=== PATIENT | female | born 2000 | race African-American/Black ===

== ENCOUNTER 2024-12-25 00:02 | Emergency (ER) | payer MEDICAID, SELFPAY ==
[2024-12-25 00:22] VITALS: BP 129/73; PULSE 89; RESP 20; TEMP 36.7; O2SAT 99; BMI 36.0
--- NOTE | 2024-12-25 00:54 | ED.GENADULT ---
HPI - General Adult General Chief complaint: Laceration/Wound Stated complaint: vagina lac from shaving Time Seen by Provider: 12/25/24 00:43 Source: patient and family Mode of arrival: ambulatory Limitations: no limitations History of Present Illness HPI narrative: 24-year-old female presents to the emergency department after a genital shaving accident. She was shaving her outer labia when she went a little bit too close to the labia minora, cutting the inside edge of the labia majora. She reports ?lots of bleeding?. She did not try any home measures like applying pressure or keeping her legs closed for an hour or other measures to help with symptoms. Did not try taking Tylenol or ibuprofen for pain. Not currently on her menses, denies any a Salter other traumas. No history of bleeding or blood clotting disorders, no anticoagulant use. Reports benign past medical history. No known drug allergies. No long-term medications. ROS is notable for the symptoms as above only, denies any symptoms of infection, gynecological changes, generalized concerns. Related Data Home Medications ?Medication ?Instructions ?Recorded ?Confirmed No Known Home Medications 12/25/24 12/25/24 Allergies Allergy/AdvReac Type Severity Reaction Status Date / Time No Known Drug Allergies Allergy Verified 12/25/24 00:23 Exam Const: Vital Signs, click to edit/add: Vital Signs - 24 hr 12/25/24 00:22 Temperature 98.0 F Pulse Rate [Right Pulse Oximeter] 89 Respiratory Rate 20 Blood Pressure [Le ft Upper Arm] 129/73 Pulse Oximetry 99 Oxygen Delivery Me thod Room Air Documenting provider has reviewed patient's vital signs: yes Common normals: no apparent distress and alert General appearance: cooperative and comfortable Resp: Common normals: normal respiratory effort Effort & inspection: able to speak in complete sentences : Other: Fairly superficial 1 cm laceration periurethral/upper inner labial majora area. Scant bleeding noted. Entire perineum is examined with no other signs of lacerations. This seems to be the source that she is describing but there is certainly no areas of ?lots of bleeding as a described. Extremity: Common normals: normal to inspection and normal capillary refill Neuro: Sensorium/orientation: alert Speech: speech normal Motor exam: strength 5/5 throughout and no movement abnormalities noted Psych: Attitude: calm and engaged Insight: insight good Judgement: judgment good Skin: Narrative: Other than the tiny labial laceration, no other areas of injury appreciated. Course Course ED Course: Areas examined. Counseled patient that with her legs tightly closed for probably about 30 minutes, the bleeding would likely mL. Alternatively, we could apply some Dermabond and that would stop the bleeding but may be uncomfortable and scratchy. She favors this approach. The Dermabond is applied along the 1 cm area of laceration with no complication. Patient then kept her legs apart to allow this to dry for 5 minutes. Counseled that this will flake off on its own, try to avoid picking for 2 days. Alarm symptoms reviewed that would warrant ED presentation. Vital Signs Vital signs: Initial Vital Signs Temperature 98.0 F 12/25/24 00:22 Temperature Source Temporal Artery Scan 12/25/24 00:22 Pulse Rate 89 12/25/24 00:22 Respiratory Rate 20 12/25/24 00:22 Blood Pressure 129/73 12/25/24 00:22 Blood Pressure Mean 91 12/25/24 00:22 Blood Pressure Position Sitting 12/25/24 00:22 Pulse Oximetry 99 12/25/24 00:22 Oxygen Delivery Method Room Air 12/25/24 00:22 Vital Signs Temperature 98.0 F 12/25/24 00:22 Pulse Rate 89 12/25/24 00:22 Respiratory Rate 20 12/25/24 00:22 Blood Pressure 129/73 12/25/24 00:22 Pulse Oximetry 99 12/25/24 00:22 Oxygen Delivery Method Room Air 12/25/24 00:22 Temperature 98.0 F 12/25/24 00:22 Pulse Rate 89 12/25/24 00:22 Respiratory Rate 20 12/25/24 00:22 Blood Pressure 129/73 12/25/24 00:22 Pulse Oximetry 99 12/25/24 00:22 Oxygen Delivery Method Room Air 12/25/24 00:22 Discharge Plan Discharge Clinical Impression: Laceration of labia majora Patient Disposition: Home w/ Parent or Adult Condition: Improved Instructions: Skin Adhesive Care (ED) Additional Instructions: As we discussed, these cuts can be small but may bleed quite a bit. We applied some Dermabond. This will help keep the skin edges closed and prevent further bleeding while the tissue heels. It will actually close up on its own within 24 hours. The glue will flake off over the next 2-5 days. The glue may be a little rough on the edges and may be slightly uncomfortable but try not to pick at it for at least the next 2 days. Do not apply any ointment or other topical agents besides washing with gentle soap and water up to once daily. No romantic recreational activities for the next 48 hours. For pain, use Tylenol 1000 mg every 6 hours and or ibuprofen 600 mg every 6 hours. If bleeding restarts, apply gentle pressure for 20-30 minutes. Activity Level: Activity as Tolerated Discharge Diet: Regular Prescriptions: No Action No Known Home Medications Stand Alone Forms: [employer] Info Instructions
[2024-12-25 00:55] VITALS: TEMP 36.7
[2024-12-25] MEDS: IBUPROFEN 200 MG TABLET 600 MG PO (00:55)
[2024-12-25 01:03] VITALS: BP 121/84; PULSE 84; RESP 20; TEMP 36.7; O2SAT 99
== END 2024-12-25 01:03 | disposition home or self-care (01) ==
LOC: ED 00:58
PROVIDERS: Emergency Provider Family Medicine
DX: S31.41XA Laceration without foreign body of vagina and vulva, initial encounter (principal); W26.8XXA Contact with other sharp object(s), not elsewhere classified, initial encounter; Y93.89 Activity, other specified
CPT/HCPCS: 12001; 99282; 99283; A9270